=== PATIENT | female | born 1975 | race Hispanic/Latino ===

== ENCOUNTER 2016-09-26 16:07 | Outpatient (CLI) | payer BC ==
--- NOTE | 2016-09-27 14:34 | Mammography Report ---
BILATERAL DIGITAL SCREENING MAMMOGRAM with CAD: 09/26/16 16:07:00 CLINICAL: Baseline screening. FINDINGS: The breasts are almost entirely fatty. No mass, architectural distortion or suspicious calcifications. IMPRESSION: No mammographic evidence of malignancy. BI-RADS CATEGORY: 1 - - Negative RECOMMENDATION: Routine mammographic screening in one year. COMMENT: Patient follow-up letters are generated by our [employer] application.
== END 2016-09-26 16:08 | disposition home or self-care (01) ==
LOC: SPVWC 16:07
PROVIDERS: ATTEND Obstetrics & Gynecology
DX: Z12.31 Encounter for screening mammogram for malignant neoplasm of breast (principal)
CPT/HCPCS: 77067; G0202

== ENCOUNTER 2022-04-19 15:45 | Outpatient (CLI) | payer BC | END 2022-04-19 15:46 | disposition home or self-care (01) | LOC: SPVWC 15:45 | PROVIDERS: ATTEND Obstetrics & Gynecology | DX: Z12.31 Encounter for screening mammogram for malignant neoplasm of breast (principal) | CPT/HCPCS: 77067 ==